=== PATIENT | female | born 1960 | race Caucasian/White ===

== ENCOUNTER → 2016-05-20 | Outpatient (CLI) | payer BC ==
[~2016-05-20] MED LIST: DRV100; IBUP-1428; TRAM-10
== END | disposition home or self-care (01) ==
LOC: C.LAB 17:15
PROVIDERS: ATTEND Family Medicine
DX: Z11.59 Encounter for screening for other viral diseases (principal)

== ENCOUNTER → 2016-06-01 | Outpatient (CLI) | payer BC ==
[2016-06-01 13:26] LABS: HEMATOCRIT 41.5 % (37-47); MEAN CELL VOLUME 89.4 fL (80-100); MEAN CORPUSCULAR HEMOGLOBIN 31.3 pg (25-34); MEAN CORPUSCULAR HGB CONC 34.9 g/dl (32-36); MEAN PLATELET VOLUME 12.3 fL (7.4-10.4); PLATELET COUNT 207 K/uL (130-400); RED BLOOD COUNT 4.64 M/uL (4.2-5.4); WHITE BLOOD COUNT 6.24 K/uL (4.8-10.8)
[2016-06-01 13:40] LABS: BLOOD UREA NITROGEN 16 mg/dl (7-18); BUN/CREATININE RATIO 18.2 (10-20); CALCIUM 9.3 mg/dl (8.5-10.1); CARBON DIOXIDE 25 mmol/L (21-32); CHLORIDE 104 mmol/L (98-107); CHOLESTEROL 199 mg/dl (0-200); CREATININE 0.85 mg/dl (0.60-1.20); GLUCOSE 80 mg/dl (70-99); SODIUM 137 mmol/L (136-145)
[2016-06-01 13:52] LABS: CHOLESTEROL/HDL RATIO 4.1; HDL CHOLESTEROL 48 mg/dl; LDL CHOLESTEROL CALCULATED 126 mg/dl; TRIGLYCERIDES 127 mg/dl (0-150); VERY LOW DENSITY LIPOPROT CALC 25 mg/dl
== END | disposition home or self-care (01) ==
LOC: C.LABPBG 10:00
PROVIDERS: ATTEND Family Medicine
DX: Z00.00 Encounter for general adult medical examination without abnormal findings (principal); E06.3 Autoimmune thyroiditis; E03.9 Hypothyroidism, unspecified; Z13.220 Encounter for screening for lipoid disorders

== ENCOUNTER → 2017-03-16 | Outpatient (CLI) | payer BC ==
--- NOTE | 2017-03-16 16:00 | MAMMOGRAPHY REPORT ---
BILATERAL DIGITAL SCREENING MAMMOGRAM TOMOSYNTHESIS WITH CAD: 03/16/2017 CLINICAL HISTORY: Routine screening examination. TECHNIQUE: Breast tomosynthesis in addition to standard 2D mammography was performed. Current study was also evaluated with a Computer Aided Detection (CAD) system. COMPARISON: Comparison is made to exams dated: 02/25/2016 mammogram and 02/20/2015 mammogram - [facility]. BREAST COMPOSITION: The tissue of both breasts is heterogeneously dense, which may obscure small mas ses. FINDINGS: There are stable postsurgical changes in the breasts. An asymmetry in the superior posteri or left breast on the MLO view appears stable dating back to at least 06/07/2011, therefore likely be nign. No new suspicious mass, architectural distortion or cluster of suspicious microcalcifications is seen. IMPRESSION: ACR BI-RADS CATEGORY 1: NEGATIVE There is no mammographic evidence of malignancy. A 1 year screening mammogram is recommended. The pa tient will receive written notification of the results. Approximately 10% of breast cancers are not detected with mammography. A negative mammographic report should not delay biopsy if a clinically suggestive mass is present. Rebeca Wilkinson M.D. ay/:03/16/2017 12:49:41 Utility Spray Operator: Zahraa FARFAN(Gareth)(Lisa), [facility] letter sent: Normal 1/2 BI-RADS Code: ACR BI-RADS Category 1: Negative
== END | disposition home or self-care (01) ==
LOC: C.MAMM 10:11
PROVIDERS: ATTEND Specialist
DX: Z12.31 Encounter for screening mammogram for malignant neoplasm of breast (principal)

== ENCOUNTER 2017-05-09 10:56 | Day surgery (SDC) | payer OTHER, BC ==
[2017-04-20 09:03] VITALS: BMI 32.0
--- NOTE | 2017-04-20 09:37 | PAT Medication Instructions ---
Service Date Apr 20, 2017. Current Home Medication List Acetaminophen (Tylenol), 650 MG PO PRN Fexofenadine-Pseudoephedrine (Lovely-D 24 Hour Allergy), 1 TAB PO PRN Ibuprofen (Advil), 800 MG PO PRN Levothyroxine Sodium (Levothyroxine Sodium), 1 TAB PO QAM [Liquid Tears], 1 DROP OPB PRN [Zantac], 1 TAB PO PRN Medication Instructions For Your Scheduled Surgery -Contact your surgeon for instructions for: Ibuprofen (Advil), 800 MG PO PRN - Hold the following medications the morning of surgery: Fexofenadine-Pseudoephedrine (Lovely-D 24 Hour Allergy), 1 TAB PO PRN - Take the following medications the morning of surgery with a sip of water: [Zantac], 1 TAB PO PRN (if needed) [Liquid Tears], 1 DROP OPB PRN (if needed) Levothyroxine Sodium (Levothyroxine Sodium), 1 TAB PO QAM Acetaminophen (Tylenol), 650 MG PO PRN (if needed can be taken up to four hours before surgery) - Take the following medications as scheduled the night before surgery: [Zantac], 1 TAB PO PRN (if needed) [Liquid Tears], 1 DROP OPB PRN (if needed) Fexofenadine-Pseudoephedrine (Lovely-D 24 Hour Allergy), 1 TAB PO PRN (if needed) Acetaminophen (Tylenol), 650 MG PO PRN (if needed) If you have any questions please call us at [phone] or [phone] or [phone]
--- NOTE | 2017-04-20 10:08 | DIAGNOSTIC IMAGING REPORT ---
CHEST 1 VIEW ROUTINE HISTORY: 57 years-old Female PAT preoperative exam. No acute chest complaints. COMPARISON: None available TECHNIQUE: Single PA view of the chest FINDINGS: Cardiomediastinal and hilar silhouettes are within normal limits. No pneumothorax, pleural effusion, focal airspace consolidation or overt pulmonary edema. Bones of the chest appear grossly intact. Dextroscoliosis of the midthoracic spine. IMPRESSION: No acute process. The above report was generated using voice recognition software. It may contain grammatical, syntax or spelling errors. Electronically signed by: Jamar Newman M.D. 04/20/2017 10:07 AM Dictated Date/Time: 04/20/2017 10:06 AM
[2017-04-20 11:05] LABS: BASO % 0.3 %; BASO ABS # 0.02 K/uL (0-0.2); EOS % 1.8 %; EOS ABS # 0.14 K/uL (0-0.5); HEMATOCRIT 40.8 % (37-47); HEMOGLOBIN 14.2 g/dL (12.0-16.0); IG# 0.02 K/uL (0.00-0.02); LYMPH % 19.6 %; LYMPH ABS # 1.52 K/uL (1.2-3.4); MEAN CELL VOLUME 92.1 fL (80-100); MEAN CORPUSCULAR HEMOGLOBIN 32.1 pg (25-34); MEAN CORPUSCULAR HGB CONC 34.8 g/dl (32-36); MEAN PLATELET VOLUME 11.9 fL (7.4-10.4); MONO % 7.9 %; MONO ABS # 0.61 K/uL (0.11-0.59); NEUT % 70.1 %; NEUT ABS # 5.43 K/uL (1.4-6.5); PLATELET COUNT 194 K/uL (130-400); RED CELL DISTRIBUTION WIDTH CV 12.7 % (11.5-14.5); RED CELL DISTRIBUTION WIDTH SD 42.8 fL (36.4-46.3); WHITE BLOOD COUNT 7.74 K/uL (4.8-10.8)
[2017-04-20 11:21] LABS: CALCIUM 9.6 mg/dl (8.5-10.1); CREATININE 0.86 mg/dl (0.60-1.20)
[~2017-05-09] VITALS: Ht 162.6 cm; Wt 84.7 kg
[~2017-05-09 10:56] MED LIST changes: +ACET-1311 PO; +CLINDAMYCIN 600 MG/54 ML D5W IV SCH; -DRV100; +FEXO1TAB58 PO; +IBUP-1050 PO; -IBUP-1428; +LACTATED RINGER'S 1000ML 1,000 ML IV SCH; +LEVO50TA6 PO; +LIQUID TEARS OPB; -TRAM-10; +ZANTAC PO
[2017-05-09 11:16] VITALS: BP 121/76; PULSE 80; TEMP 36.8; O2SAT 99; Ht 162.6 cm; Wt 84.7 kg
--- NOTE | 2017-05-09 11:46 | History & Physical Bridge Note ---
H&P Re-Evaluation Bridge Note: I have examined the patient, reviewed the History & Physical and in the interval since the performance of the History & Physical I have noted the following changes of clinical significance: No changes noted
--- NOTE | 2017-05-09 11:47 | History and Physical ---
History & Physical Date May 09, 2017. Chief Complaint Right SI joint pain History of Present Illness The patient is a 57 year old female with complaints of right SI joint pain Additional History Hepatic Disease: No Endocrine Disorder: No Kidney Disease: No Hypertension: No Heart Disease: No Bleeding Tendencies: No Infectious Diseases: No Allergies Coded Allergies: Penicillins (Verified Allergy, Severe, CAN'T BREATHE, HIVES,TONGUE SWELLING, 05/09/17) Home Medications Scheduled Acetaminophen (Tylenol), 650 MG PO PRN Fexofenadine-Pseudoephedrine (Lovely-D 24 Hour Allergy), 1 TAB PO PRN Ibuprofen (Advil), 800 MG PO PRN Levothyroxine Sodium (Levothyroxine Sodium), 1 TAB PO QAM [Liquid Tears], 1 DROP OPB PRN [Zantac], 1 TAB PO PRN Physical Examination Skin: warm/dry, no rash Eyes: normal inspection, EOMI, sclerae normal ENT: normal ENT inspection, pharynx normal Head: normocephalic, atraumatic Neck: supple, no adenopathy, trachea midline Respiratory/Chest: lungs clear, normal breath sounds, no respiratory distress Cardiovascular: regular rate, rhythm, no edema, no murmur Abdomen / GI: normal bowel sounds, non tender Back: normal inspection Extremities: normal inspection, normal range of motion Neurologic/Psych: no motor/sensory deficits, alert, normal reflexes, oriented x 3 Diagnosis Right sacroiliitis Plan of Treatment Right SI joint fusion
[2017-05-09] MEDS ORDERED: BUPIVACAINE/EPINEPHRINE 0.5% MPF 1:200,000 30 ML VIAL ONE (11:58)
[2017-05-09] MEDS ORDERED: BACITRACIN 50000 UNIT VIAL ONE (11:58)
[2017-05-09] MEDS ORDERED: MIDAZOLAM HCL 1 MG/ML 2ML VIAL ONE (11:59)
[2017-05-09] MEDS ORDERED: FENTANYL CITRATE INJ 50 MCG/1 ML 2 ML VIAL ONE ×2 (11:59→13:00)
[2017-05-09] MEDS ORDERED: MEPERIDINE HCL 25 MG/ML CARP IV PRN (12:00)
[2017-05-09] MEDS ORDERED: EpHEDrine SULFATE INJ 50 MG/ML AMP IV PRN (12:00)
[2017-05-09] MEDS ORDERED: ATROPINE SULFATE 0.1 MG/ML 5ML SYR IV PRN (12:00)
[2017-05-09] MEDS ORDERED: ONDANSETRON INJ 2 MG/ML 2 ML VIAL IV PRN (12:00)
[2017-05-09] MEDS ORDERED: LABETALOL HCL IV 5 MG/ML 20ML IV PRN (12:00)
[2017-05-09] MEDS ORDERED: HYDROmorphone INJ 2 MG/ML SYR/VIAL ONE (12:36)
[2017-05-09] MEDS ORDERED: KETOROLAC TROMETHAMINE 30 MG/ML VIAL ONE (12:41)
[2017-05-09] MEDS ORDERED: GLYCOPYRROLATE INJ 0.2 MG/ML VIAL ONE (12:41)
[2017-05-09] MEDS ORDERED: ONDANSETRON INJ 2 MG/ML 2 ML VIAL ONE (12:41)
[2017-05-09] MEDS ORDERED: PROPOFOL IV EMULSION 10 MG/ML 20 ML VIAL IV ONE (12:41)
[2017-05-09] MEDS ORDERED: NEOSTIGMINE METHYLSULFATE 1 MG/ML 10ML VIAL ONE (12:41)
[2017-05-09] MEDS ORDERED: ROCURONIUM BROMIDE 10 MG/ML 5 ML VIAL IV ONE (12:41)
[2017-05-09] MEDS ORDERED: DEXAMETHASONE SOD INJ 4 MG/ML VIAL ONE (12:41)
[2017-05-09] MEDS ORDERED: LIDOCAINE HCL 2% 2 ML VIAL (20MG/ML) ONE (12:41)
--- NOTE | 2017-05-09 12:59 | [facility] Operative Report ---
Operative Report Operative Date May 09, 2017. Pre-Operative Diagnosis Right sacroiliitis Post-Operative Diagnosis Right sacroiliitis Procedure(s) Performed Right Sacroiliac Joint Fusion Surgeon Dr. Luca James Industrial Maintenance Mechanic Surgeon(s) Joanne Moser PA-C Estimated Blood Loss 25 Findings None Specimens none per surgeon Anesthesia Type General Description of Procedure Patient was met with preoperatively case discussed all questions addressed. After informed consent obtained patient was taken to the operative suite underwent intubation and placed in the prone position on the Munir table with chest pad bolsters. All bony prominences were well-padded eyes inspected to ensure no external pressure placed upon them. This point the right upper buttock was prepped and draped in normal sterile fashion. With the assistance of fluoroscopy identified the posterior slope sacral alar of the sacrum. A 3 cm incision was made along the sacral slope. A K wire was then placed and we verified position with AP inlet outlet and lateral views. The K wire was placed across the proximal aspect of the SI joint on the right. I then dilated up to a 10 mm drill and we drilled across the joint. I measured a 40 mm screw. A 40 mm PEARSON-coated slotted screw filled with locally harvested morcellized autograft and osteogen bone graft was then placed across the SI joint. I appreciate excellent fit. I then used the outrigger guide to place a distal screw 12 mm from the initial placement. Again I verified position of the K wire in all planes. Again a 40 mm PEARSON-coated slotted screw filled with bone graft was placed. A third screw was then placed again 12 mm distal. This screw was 30 mm in length. Again PEARSON-coated slotted screw filled with locally harvested graft and osteal and bone graft. All 3 screws demonstrated excellent fit and positioning. The incision was then copious irrigated and closed with subcutaneous Vicryl and 4-0 Monocryl for final skin closure. Steri-Strips sterile dressing was placed. Patient awakened taken to PACU in stable condition. Please note Joanne Soler was present at the entire procedure involved in patient positioning complex portions of the surgery and final skin closure. I attest to the content of the Intraoperative Record and any orders documented therein. Any exceptions are noted below.
[2017-05-09] MEDS ORDERED: OXYC-57 PO (13:02)
--- NOTE | 2017-05-09 13:03 | Discharge Instructions ---
Discharge Instructions Date of Service May 09, 2017. Admission Reason for Admission: Si Joint Dysfunction Discharge Discharge Diagnosis / Problem: sacroiliitis Discharge Goals Goal(s): Decrease discomfort Activity Recommendations Activity Limitations: as noted below Exercise/Sports Limitations: gradually increase as tolerated May Resume Sexual Activity: after follow-up appointment Shower/Bathe: may shower/bathe in 3 days Weightbearing Status: Right toe touch . Current Hospital Diet Patient's current hospital diet: Discharge Diet Recommended Diet: Regular Diet Procedures Procedures Performed: Right Sacroiliac Joint Fusion Pending Studies Studies pending at discharge: no Medical Emergencies . Who to Call and When: Medical Emergencies: If at any time you feel your situation is an emergency, please call 911 immediately. . Non-Emergent Contact Non-Emergency issues call your: Primary Care Provider . "Provider Documentation" section prepared by Luca James. . VTE Core Measure Inpt VTE Proph given/why not?: Greg Russo, SCD's
--- NOTE | 2017-05-09 13:07 | DIAGNOSTIC IMAGING REPORT ---
SACRUM CLINICAL HISTORY: 57 years-old Female presenting with RT SACROILIAC JOINT FUSION. TECHNIQUE: 3 fluoroscopic spot image(s) obtained as part of an intraoperative procedure. COMPARISON: None. FINDINGS/IMPRESSION: 3 screw fixation across the right sacroiliac joint. Partially visualized posterior bilateral transpedicular screw and lars fixation in the lower lumbar spine with interbody spacer. Grossly normal anatomic alignment. Please see surgical report for further details. Fluoroscopy dosage (mGy): 59.96. Fluoroscopy time: 82 seconds. Number of fluoroscopic spot images: 3. Electronically signed by: Micheal Gilliam M.D. 05/09/2017 1:05 PM Dictated Date/Time: 05/09/2017 1:04 PM
[2017-05-09] MEDS ORDERED: ACETAMINOPHEN 325 MG TAB PO PRN (13:15)
[2017-05-09] MEDS ORDERED: OXYCODONE HCL IR 5 MG TAB (IMMEDIATE RELEASE) PO PRN (13:15)
[2017-05-09] MEDS ORDERED: HYDROmorphone INJ 2 MG/ML SYR/VIAL IV PRN (13:15)
[2017-05-09] MEDS ORDERED: KETOROLAC TROMETHAMINE 30 MG/ML VIAL IV. PRN (13:15)
[2017-05-09] MEDS: FENTANYL CITRATE INJ 50 MCG/1 ML 2 ML VIAL IV PRN ×2 (13:20→13:27)
[2017-05-09] MEDS: HYDROmorphone INJ 1 MG/ML SYR IV PRN ×2 (13:33→13:39)
--- NOTE | 2017-05-09 13:48 | Anesthesiology Progress Note ---
Anesthesia Post Op Note Date & Time May 09, 2017 at 13:48 Vital Signs Pain Intensity: 5 Vital Signs Past 12 Hours Date Time Temp Pulse Resp B/P (MAP) Pulse Ox O2 Delivery O2 Flow Rate FiO2 05/09/17 13:40 79 15 114/84 93 Room Air 05/09/17 13:30 78 12 124/79 100 Oxymask 10 05/09/17 13:20 85 14 122/82 100 Oxymask 10 05/09/17 13:12 36.4 93 16 129/78 97 Oxymask 10 05/09/17 11:16 36.8 80 20 121/76 (91) 99 Room Air Notes Mental Status: alert / awake / arousable, participated in evaluation Pt Amnestic to Procedure: Yes Nausea / Vomiting: adequately controlled Pain: adequately controlled Airway Patency, RR, SpO2: stable & adequate BP & HR: stable & adequate Hydration State: stable & adequate Anesthetic Complications: no major complications apparent
[2017-05-09 15:00] VITALS: BP 122/75; PULSE 72; TEMP 36.3; O2SAT 99
== END 2017-05-09 16:00 | disposition home or self-care (01) ==
LOC: C.ACU 10:56
PROVIDERS: ATTEND Orthopaedic Surgery Orthopaedic Surgery of the Spine
DX: M46.1 Sacroiliitis, not elsewhere classified (principal); E66.9 Obesity, unspecified; Z68.32 Body mass index [BMI] 32.0-32.9, adult; Z88.0 Allergy status to penicillin; Z98.41 Cataract extraction status, right eye; Z98.42 Cataract extraction status, left eye

== ENCOUNTER → 2017-05-30 | Outpatient (CLI) | payer BC ==
[~2017-05-30] MED LIST changes: -CLINDAMYCIN 600 MG/54 ML D5W IV SCH; -IBUP-1050 PO; -LACTATED RINGER'S 1000ML 1,000 ML IV SCH; +OXYC-57 PO
== END | disposition home or self-care (01) ==
LOC: C.LABPBG 08:17
PROVIDERS: ATTEND Family Medicine
DX: E03.9 Hypothyroidism, unspecified (principal)

== ENCOUNTER 2024-06-27 05:26 | Observation (INO) ==
--- NOTE | 2024-05-28 15:00 | PAT Medication Instructions ---
Medication Instructions Date of Service May 28, 2024 Home Medications Medication Instructions Recorded escitalopram oxalate 20 mg tablet 20 mg PO DAILY #90 tabs 08/25/23 pantoprazole 40 mg tablet,delayed 40 mg PO DAILY #90 tabs 08/25/23 release levothyroxine 125 mcg tablet 125 mcg PO DAILY #90 tabs 03/23/24 phentermine 37.5 mg capsule 37.5 mg PO QAM #30 caps 03/23/24 Medication List: fexofenadine 180 mg tablet (Lovely Allergy) 180 mg PO DAILY PRN Allergy Symptoms escitalopram oxalate 20 mg tablet 20 mg PO DAILY pantoprazole 40 mg tablet,delayed release 40 mg PO DAILY levothyroxine 125 mcg tablet 125 mcg PO DAILY phentermine 37.5 mg capsule 37.5 mg PO QAM MEDICATION INSTRUCTIONS: DO NOT take the morning of surgery fexofenadine 180 mg tablet (Lovely Allergy) 180 mg PO DAILY PRN Allergy Symptoms Take morning of surgery With a small sip of water, OTHERWISE NOTHING TO EAT OR DRINK AFTER MIDNIGHT: escitalopram oxalate 20 mg tablet 20 mg PO DAILY pantoprazole 40 mg tablet,delayed release 40 mg PO DAILY levothyroxine 125 mcg tablet 125 mcg PO DAILY Other Notes STOP taking 5 days before surgery: phentermine 37.5 mg capsule 37.5 mg PO QAM If you have any questions please call us at [phone] or [phone] or [phone] or [phone]
--- NOTE | 2024-06-08 09:16 | Anesthesiology Consultation ---
Date of Service June 08, 2024 Assessment & Plan (1) Encounter for pre-operative examination: - Infectious disease screening: Per assessment on 06/08/24- URI onset 05/22/24. Seen by [facility] PCP 06/04/24 for ongoing cough/congestion. Suspected influenza A given sister with similar symptoms tested positive for influenza (negative Covid home testing). Rx'd prednisone and Azithromycin (still taking; symptoms significantly improved). DOS 06/27/24. Patient advised to contact surgeon/PAT if not at baseline after completion of prednisone/abx. - Outpatient joint assessment: Pt currently scheduled for inpatient pathway. If surgeon requests review for outpatient joint pathway, patient is an acceptable candidate for outpatient joint program from anesthesia standpoint pending surgeon's office assessment that patient is motivated, has good support and completes [facility] Day Joint Program preop requirements. Chart Review Chart Review: Acceptable Risk for Surgery (pending evaluation DOS) and Patient seen in Pre Admission Testing Teaching & Discussion Pre-Anesthesia Teaching/Discussion Notes: Instructed NPO after midnight before surgery,except medications with 15 cc of water. Medication instructions provided according to the PAT guidelines. History Surgery Operation Date: 06/27/24 12:35 Proposed Procedures p Left Unicompartment Knee versus - Anthony Sullivan MD s Left Total Knee Arthroplasty - Anthony Sullivan MD Height/Weight Height: 5 ft 4 in Weight: 84.4 kg Allergies Allergy/AdvReac Type Severity Reaction Status Date / Time Penicillins Allergy Severe Dyspnea, Verified 06/04/24 11:14 hives, tongue swelling Medications Home Medications Medication Instructions Recorded Confirmed Last Taken fexofenadine 180 mg tablet 180 mg PO DAILY PRN Allergy 01/16/18 06/04/24 01/17/18 (Lovely Allergy) Symptoms escitalopram oxalate 20 mg tablet 20 mg PO DAILY #90 tabs 08/25/23 06/04/24 Unknown pantoprazole 40 mg tablet,delayed 40 mg PO DAILY #90 tabs 08/25/23 06/04/24 Unknown release phentermine 37.5 mg capsule 37.5 mg PO QAM #30 caps 03/23/24 06/04/24 Unknown azithromycin 250 mg tablet See Rx Instructions PO .COMPLEX #6 06/04/24 06/04/24 Unknown tabs levothyroxine 125 mcg tablet 125 mcg PO DAILY #90 tabs 06/04/24 Unknown prednisone 20 mg tablet 40 mg (2 x 20 mg) PO DAILY 5 days 06/04/24 06/04/24 Unknown #10 tabs Past Medical History Medical History Anxiety COVID-19 2021- symptosm resolved DJD (degenerative joint disease) GERD (gastroesophageal reflux disease) Hiatal hernia History of anemia Hx of Lev thyroiditis Hypothyroidism Lumbar disc disease Obesity Taking phentermine for weight loss PVCs (premature ventricular contractions) Intermittent, stress-induced No current issues Seasonal allergies Thrombocytopenia Hx chronic thrombocyopenia Monitoring with Omgili/Cecilia Platelet count WNL (169) on preop labs 06/08/24 Exercise / Class Metabolic Activity III < 4 Walking/Shop/Light housework Past Family History Family History Father Myocardial infarction, Onset Age: 58 Coronary heart disease Mother Breast cancer Grandmother (Paternal) Breast cancer Grandmother (Maternal) Ovarian cancer Sister Esophageal cancer Denies family history of Prostate cancer Past Surgical History Surgical History History of abdominoplasty History of appendectomy History of back surgery Right sacroiliac joint fusion (2017) History of bilateral breast reduction surgery History of bilateral cataract extraction History of section History of endoscopic sinus surgery History of partial hysterectomy History of tonsillectomy and adenoidectomy History of tooth extraction wisdom teeth Hx of arthroscopy of shoulder right Hx of colonoscopy Status post lumbar spine surgery for decompression of spinal cord L4-5 decompression and fusion (2005) Past Anesthesia History No Hx of Anesthesia Complications and No Family Hx of Anesthesia Complications Social History Smoking Status: Never smoker Do You Dip or Chew Tobacco: No Hx Alcohol Use: Yes Alcohol type: wine and hard liquor alcohol intake frequency: holidays/special occasions only Hx Substance Use: No substance use type: does not use Review of Systems Patient denies chest pain, shortness of breath, fever, chills, cough, wheezing. Physical Exam Vital Signs BP 123/86 P 70 TEMP 98.0 SP02 97%A RESP 16 Physical Full cervical extension range of motion. Full TMJ range of motion. TMD 3 finger breaths Mallampati Score III Dentition: intact, lower permanent retainer Lungs: clear throughout to auscultation Cardiac: regular rate and rhythm, no murmurs noted Spine: normal Carotid arteries: negative bruit Extremities: no LE edema Lab Results Anesthesia Preop Results Results Anesthesia Widget: WBC 7.13 K/ul (4.8-10.8) 06/08/24 Hgb 13.1 g/dl (12.0-16.0) 06/08/24 Hct 39.1 % (37.0-47.0) 06/08/24 Plt 169 K/uL (130-400) 06/08/24 Na 141 mmol/L (136-145) 06/08/24 K 3.9 mmol/L (3.5-5.1) 06/08/24 Cl 106 mmol/L (98-107) 06/08/24 CO2 28 mmol/L (21-32) 06/08/24 BUN 13 mg/dl (6-23) 06/08/24 Creat 0.90 mg/dl (0.6-1.2) 06/08/24 Glucose Level 100 mg/dl (70-99(Fasting)) H 06/08/24 PT 10.6 Seconds (9.0-12.0) 06/08/24 PTT 22 Seconds (21-31) 06/08/24 INR 1.0 (0.9-1.1) 06/08/24 TSH 1.159 uIu/ml (0.300-4.500) 06/08/24 Blood Type B Negative 06/08/24 Antibody Screen NEGATIVE 06/08/24 Testing Electrocardiogram Date: 06/08/24 NSR at 64bpm. "Normal ECG" Chest X-Ray Date: 06/08/24 FINDINGS: Heart size and pulmonary vasculature are normal. No effusion or consolidation. There is mild scoliosis. IMPRESSION: No acute findings.
--- NOTE | 2024-06-23 13:32 | History & Physical Report ---
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 She has failed conservative measures. She is looking to have her knee fixed. Plan: We discussed treatment option with the patient. It is beyond the point where knee arthroscopy would help her. We talked about partial versus full knee replacement she would like to proceed along the course of a partial knee replacement. Will proceed along that course. If we get in there and it is too bad we will do a full knee replacement. The [place] of the procedure were explained. Informed consent was obtained. Will plan on using aspirin for DVT prophylaxis. She is planned to be discharged to home. Will keep in the hospital overnight. (2) Obesity (BMI 30.0-34.9): (3) Hyperlipidemia: (4) Thrombocytopenia: (5) GERD (gastroesophageal reflux disease): (6) Hiatal hernia: (7) Hypothyroidism: History of Present Illness Chief Complaint: . Left medial knee pain. Primary Care Provider: Aliza Gibbs DO . The patient is a 64-year-old female who presents for treatment of her left knee. She has about a year history of left knee pain discomfort for which she dates back to an injury she stated when she was using a stepping machine. She been through conservative treatment provided over at [facility] which have become less successful over time. She has medial sided knee pain. She has been using a cane to get around for the past couple months due to the pain. Pains all medial. Some mild swelling. No groin pain. She would like to have her knee fixed. Allergies Allergy/AdvReac Type Severity Reaction Status Date / Time Penicillins Allergy Severe Dyspnea, Verified 06/04/24 11:14 hives, tongue swelling Home Medications Medication Instructions Recorded Confirmed Type fexofenadine 180 mg tablet 180 mg PO DAILY PRN Allergy 01/16/18 06/04/24 History (Lovely Allergy) Symptoms escitalopram oxalate 20 mg tablet 20 mg PO DAILY #90 tabs 08/25/23 06/04/24 Rx pantoprazole 40 mg tablet,delayed 40 mg PO DAILY #90 tabs 08/25/23 06/04/24 Rx release phentermine 37.5 mg capsule 37.5 mg PO QAM #30 caps 03/23/24 06/04/24 Rx azithromycin 250 mg tablet See Rx Instructions PO .COMPLEX #6 06/04/24 06/04/24 Rx tabs levothyroxine 125 mcg tablet 125 mcg PO DAILY #90 tabs 06/04/24 Rx Past Med/Surg History Problem List Encounter for pre-operative examination Left knee DJD Obesity (BMI 30.0-34.9) Hyperlipidemia Thrombocytopenia Low iron Anxiety Allergic rhinitis Lumbar disc disease Premature ventricular contractions GERD (gastroesophageal reflux disease) Hiatal hernia Hypothyroidism Medical History GERD (gastroesophageal reflux disease) Lumbar disc disease Hypothyroidism Hx of Lev thyroiditis Seasonal allergies Anxiety History of anemia Obesity Taking phentermine for weight loss DJD (degenerative joint disease) Hiatal hernia PVCs (premature ventricular contractions) Intermittent, stress-induced No current issues Thrombocytopenia Hx chronic thrombocyopenia Monitoring with Zofia quiñonez/Cecilia Platelet count WNL (169) on preop labs 06/08/24 COVID-19 2021- symptosm resolved Surgical History Hx of colonoscopy Hx of arthroscopy of shoulder right History of back surgery Right sacroiliac joint fusion (2017) Status post lumbar spine surgery for decompression of spinal cord L4-5 decompression and fusion (2005) History of abdominoplasty History of bilateral breast reduction surgery History of section History of partial hysterectomy History of appendectomy History of tooth extraction wisdom teeth History of tonsillectomy and adenoidectomy History of endoscopic sinus surgery History of bilateral cataract extraction Family History Father Myocardial infarction, Onset Age: 58 Coronary heart disease Mother Breast cancer Grandmother (Paternal) Breast cancer Grandmother (Maternal) Ovarian cancer Sister Esophageal cancer Denies family history of Prostate cancer Social History Smoking Status: Never smoker Second Hand Exposure: Yes (parents/ smoke); Do You Dip or Chew Tobacco: No; Tobacco Cessation Education Requested by Patient: No Hx Alcohol Use: Yes Alcohol type: wine and hard liquor Alcohol Intake Frequency: Monthly or Less Hx Substance Use: No Preferred Language: Occitan Communication Ability: Effective Visual Impairment: No Limitations Hearing Ability: Normal Cottage Attendant Required: No Beliefs That Will Affect Care: None marital status: Current Living Situation: Spouse current occupational status: employed current occupation: [employer] How many Children do You have: 2 Other Information That Helps Us Care for You: No Feels Safe at Home: Yes Safety Concerns: Feels Safe At This Time Childhood Exposure to Second-Hand Smoke: Yes Diet: regular Diet Comment: regular caffeine: Yes during the past year weight has: remained stable Dental Care, Regularly: Yes Physical Activity Frequency: Other Physical Activity Frequency Comment: housework Seatbelt Use: always Sunscreen Use: Yes Assistive Devices: Crutches and Glasses Review of Systems All systems reviewed & are unremarkable except as noted in HPI & below. Physical Exam . Physical examination is a pleasant middle-age female who looks be in good health. Examination left knee reveals patient walks with use of a single crutch. She limps on this left side. She can walk without it but limps quite a bit. The alignment is fairly neutral. She is tender with medial joint line. Small knee effusion. Range of motion 0-1 20. There is no instability. Constitutional WD/WN, vitals as above Respiratory normal respiratory effort, lungs clear to auscultation Cardiovascular RRR, no murmur, no edema Gastrointestinal (Abdomen) normal bowel sounds, soft, nontender, no hepatosplenomegaly Results & Data Results & Data Laboratory Results . Diagnostic Findings . X-rays of the knee were reviewed. It shows advanced progressive medial compartment arthritis in her left knee. She got almost [id number] disease. This has progressed over the past 6 months. The rest knee looks pretty good. MRI of the knee was also reviewed from [facility]. It shows degenerative changes in the medial compartment of her knee. That she got extrusion of her medial meniscus. She is got degenerative changes of the medial femoral condyle and medial tibial plateau. PG Care Time/CCT Total # of Minutes Spent Total Time Spent with Patient: Total time spent is greater than 50% in coordination of care (as documented) at patient's floor/unit and/or counseling patient: Coding Level of Care Code None Diagnoses Left knee DJD M17.12 Obesity (BMI 30.0-34.9) E66.811 Hyperlipidemia E78.5 Thrombocytopenia D69.6 GERD (gastroesophageal reflux disease) K21.9 Hiatal hernia K44.9 Hypothyroidism E03.9
[~2024-06-27 05:26] MED LIST changes: -ACET-1311 PO; +ALLERGY Noted to ORDERED Medication SCH; -FEXO1TAB58 PO; -LEVO50TA6 PO; -LIQUID TEARS OPB; -OXYC-57 PO; -ZANTAC PO
[2024-06-27] MEDS: FAMOTIDINE 20 MG TAB PO SCH (05:43)
[2024-06-27] MEDS: ACETAMINOPHEN 500 MG TAB PO SCH ×2 (05:43→11:48)
[2024-06-27] MEDS: LR 60ML/HR IV SCH (05:43)
[2024-06-27] MEDS: dexAMETHasone**PF** 10 MG/ML VIAL IV SCH (05:43)
[2024-06-27] MEDS: METOCLOPRAMIDE HCL 10 MG TABLET PO SCH (05:43)
[2024-06-27] MEDS: CeleBREX 200 MG CAP PO SCH (05:51)
[2024-06-27] MEDS: LR 500ML BOLUS, THEN 15ML/HR IV SCH (06:00)
[2024-06-27] MEDS ORDERED: ROPIVACAINE 0.5% 5 MG/ML 30 ML VIAL ONE (06:31)
[2024-06-27] MEDS ORDERED: BUPIVACAINE 0.5 % 5 MG/1 ML PF 10ML VIAL ONE (06:31)
[2024-06-27] MEDS ORDERED: ONDANSETRON INJ 2 MG/ML 2 ML VIAL IV PRN ×2 (06:35→10:36)
[2024-06-27] MEDS ORDERED: ATROPINE SULFATE 0.1 MG/ML 10ML SYR IV PRN (06:35)
[2024-06-27] MEDS ORDERED: fentaNYL citrate PF 100 MCG/2 ML VIAL IV PRN (06:35)
[2024-06-27] MEDS ORDERED: ePHEDrine sulfate 50 MG/ML AMP IV PRN (06:35)
[2024-06-27] MEDS ORDERED: fentaNYL citrate PF 100 MCG/2 ML VIAL ONE (06:38)
[2024-06-27] MEDS ORDERED: MIDAZOLAM HCL 1 MG/ML 2ML VIAL ONE (06:38)
--- NOTE | 2024-06-27 06:42 | History & Physical Bridge Note ---
Date of Service June 27, 2024 History & Physical Bridge Note I have examined the patient, reviewed the History & Physical and in the interval since the performance of the History & Physical I have noted the following changes of clinical significance: no changes noted
[2024-06-27] MEDS ORDERED: Nursing to Pharmacy Communication SCH (06:45)
[2024-06-27] MEDS: ceFAZolin 2000MG 2,000 MG/15 ML SYR IV SCH ×2 (07:04→14:03)
[2024-06-27] MEDS ORDERED: PROPOFOL IV EMULSION 10 MG/ML 20 ML VIAL IV ONE (07:14)
[2024-06-27] MEDS: ROPIV 0.5% 246mg, Ketorolac 30mg, EPINEPHrine 0.5mg in NSS INFIL SCH (07:44)
[2024-06-27] MEDS: ORTHO JOINT ANESTHETIC ONE (07:45)
[2024-06-27] MEDS: TRANEXAMIC ACID 1,000 MG **IV Intra-op IV SCH (08:02)
--- NOTE | 2024-06-27 08:59 | Operative Report ---
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 She had a full-thickness cartilage loss of the medial femoral condyle medial tibial plateau. The rest of her knee was pretty well-preserved. ACL was intact. Specimens Left knee sent for pathology. Anesthesia Type Spinal MAC Complications none Disposition Accompanied Patient To Recovery: No Indications The patient is a 64-year-old female whose had about a year history of progressive increasing left knee pain discomfort that is gradually gotten worse over time. She been through extensive conservative treatment which was not very effective. Her symptoms continue to progress and x-rays show a radiographic progression of her medial compartment arthritis. The rest of her knees look pretty good. She elected to see with left partial knee replacement. Description of Procedure Operative implants consists of: New 1 Biomet Hatillo size small femoral component. 2. Biomet Hatillo left medial size AA tibial tray. 3. 4 mm mobile-bearing polyethylene insert. The patient was taken the op room, identified, placed on the operating table in the supine position. All contact areas were appropriately padded. IV antibiotics fibra anesthesia team. A spinal anesthetic and adductor canal block had been provided in the holding area. A Hermosillo catheter was placed in sterile fashion. A left thigh tourniquet was then placed. Left lower extremities then prepped draped in usual sterile fashion. The left leg was elevated and exsanguinated with use of an Esmarch and a turn was placed at 300 mmHg. An anterior approach to the left knee was then performed to longitudinal incision beginning at the superior pole of the patella and extending just medial to the tibial tubercle. Sharp dissection was got through subcutaneous tissue down the extensor mechanism. A medial parapatellar arthrotomy incision was made. Some slight subperiosteal dissection was carried out medially taking great care to protect the MCL. The fat pad was resected. I then examined the knee and the lateral compartment was well-preserved. Minimal arthritic change in the patellofemoral joint. We elected proceed with partial knee replacement. The osteophytes removed from the intercondylar notch area. The femur was sized to a size small. The small spoon was placed and attached to the external tumor alignment jig. The jig was pinned in place. The proximal tibial cut was made. The tibia sized to a size double leg. Attention drawn the femur. The distal femur examined the sharp drop with intramedullary lars was placed. A small femoral template was then placed and attached to the IM lars. The holes were drilled for the femoral component. The posterior cutting guide was placed and a posterior cut was made. The knee was flexed. The medial meniscus was excised. We then used the 0 spigot the Flores distal femur. Then trialed the knee and the 4 feeler gauge fit and flexion and the 1 in extension. The 3 spigot was used to milled the distal femur. We then trialed it again and the 4 insert fit appropriately in flexion and extension. We elect to place these implants. All trial implants were removed. The distal femur was prepared with the posterior osteophyte cutting guide as well as the anterior milling device. Some cement holes were drilled in the distal femur for cement interdigitation. The tibial tray was pinned in place. The toothbrush blade was used to create the defect for the keel of the tibial tray. The tibial tray was then placed. We trialed the knee and the 4 insert fit appropriately. We went to placing these implants. All trial implants were removed. I irrigated extensively. We did inject locally with 60 cc of Ortho mix. A single batch Palacos G cement was mixed. A left AA tibial tray was cemented in place followed by a small femoral component. The 4 feeler gauge was placed until the cement hardened. Final cement check was then performed. We then trialed the knee 1 more time and the 4 insert fit appropriately. The permanent for implant was selected and placed. Attention drawn toward closing. The wounds irrigated coconuts pulsatile wash solution. The extensor Metros then closed with #1 Vicryl suture in a [id number] fashion. Extensor Meclomen checked found to be intact with subcutaneous tissue then closed with 2 Dexon suture in a buried interrupted fashion skin was closed with skin scar. Leg was then cleaned and dried a sterile dressing with Xeroform, 4 fours, sterile cast padding and Chase bandage were applied. The patient then transferred to the recovery room in stable condition. The patient tolerated procedure well and there were no complications. Adonis Rincon, my physician operational assistant, was present for the entire procedure. His assistance was essential and required for appropriate patient positioning, prepping and draping, surgical exposure, performing the technical details of the operation, placement the implants, closure of the wound, and placement of the sterile bandage. I attest to the content of the Intraoperative Record and any orders documented therein. Any exceptions are noted below.
--- NOTE | 2024-06-27 09:10 | XRay Report ---
XR knee LT 1 or 2V routine CLINICAL HISTORY: Surgical Post Op COMPARISON: None FINDINGS: Medial left knee prosthesis shows no hardware complication. There is expected soft tissue gas. Skin scar are present. IMPRESSION: Unremarkable postoperative exam. ACT 112: Negative or not required by law. Electronically signed by: Tobi Cardenas M.D. 06/27/2024 9:09 AM
[2024-06-27] MEDS ORDERED: ONDANSETRON 4 MG OD TAB PO PRN (10:36)
[2024-06-27] MEDS ORDERED: HYDROmorphone INJ 0.5 MG/0.5 ML SYR IV PRN (10:36)
[2024-06-27] MEDS ORDERED: MAGNESIUM HYDROXIDE SUSP 30 ML UDC PO PRN (10:36)
[2024-06-27] MEDS ORDERED: ALUMINUM/MAGNESIUM SUSP 30 ML UDC PO PRN (10:36)
[2024-06-27] MEDS ORDERED: oxyCODONE HCL IR 5 MG TAB (IMMEDIATE RELEASE) PO PRN (10:36)
[2024-06-27] MEDS ORDERED: FEXOFENADINE HCL 180 MG TAB PO PRN (10:36)
[2024-06-27] MEDS ORDERED: METOCLOPRAMIDE HCL INJ 5 MG/ML 2 ML VIAL IV PRN (10:36)
[2024-06-27] MEDS ORDERED: NALOXONE HCL 0.4 MG/1 ML VIAL/CARP IV PRN (10:36)
[2024-06-27] MEDS ORDERED: bisacodyL 10 MG SUPP PR PRN (10:36)
[2024-06-27] MEDS: LEVOTHYROXINE SODIUM 125 MCG TABLET PO SCH (11:43)
[2024-06-27] MEDS: PANTOprazole 40 MG TAB PO SCH (11:45)
[2024-06-27] MEDS: MULTIVITAMIN TAB PO SCH (11:45)
[2024-06-27] MEDS: ESCITALOPRAM OXALATE 20 MG TAB PO SCH (11:45)
[2024-06-27] MEDS: ASPIRIN 81 MG ECTAB PO SCH (11:45)
[2024-06-27] MEDS: KETOROLAC 30 MG/ML VIAL IV SCH (11:47)
[2024-06-27] MEDS: DOCUSATE SODIUM 100 MG CAP PO SCH (11:47)
[2024-06-27] MEDS: SENNA 8.6 MG TAB PO SCH ×2 (11:51→20:02)
[2024-06-27] MEDS: TRANEXAMIC ACID / 0.7% NACL 1,000 MG/100 ML BAG IV SCH (14:03)
[2024-06-27] MEDS: ASCORBIC ACID 500 MG TAB PO SCH (16:56)
[2024-06-28 07:16] VITALS: BP 102/60; PULSE 82; RESP 16; TEMP 98.6; O2SAT 95
--- NOTE | 2024-06-28 08:23 | Orthopedic Progress Note ---
Date of Service June 28, 2024 Assessment & Plan (1) S/P left unicompartmental knee replacement: POD 1 from a left unicompartmental knee arthroplasty by Dr. Sullivan -SCDs, teds and aspirin 81 mg twice daily for DVT prophylaxis -Home medications already sent in by Dr. Sullivan picked up by patient and her family prior to the surgery -Please work with PT/OT today prior to discharge. -She does have some saturation of the anterior lateral aspect of her dressing. Please change dressing and Chase wrap prior to discharge. -Discharge order has been placed pending PT/OT and dressing change. -She already has home PT set up. Follow-up with Dr. Sullivan in 2 to 3 weeks for first postop check and staple removal. Subjective Operation Date: 06/27/24 07:00 Actual Procedures p Left Unicompartment Knee Arthroplasty(Left) - Anthony Sullivan MD Postop day 1 from a left knee unicompartmental arthroplasty. She is doing well. States that she has postop care figured out at this point. States pain is under control. She has not seen PT/OT yet during this admission. No other question or concerns today. Review of Systems All systems reviewed & are unremarkable except as noted in HPI & below. Physical Exam General: Alert and oriented. No acute distress. Left knee: Inspection does reveal some saturation of the Chase wrap on the anterior lateral side. I will have nursing staff change this prior to her discharge today. Did explain to her that some saturation is normal after these type of procedures. She is very good range of motion of her left knee and very good range of motion of the left ankle and foot. Neurovascularly intact in the left lower extremity. Results & Data Results & Data Laboratory Results . Diagnostic Findings . PG Care Time/CCT Total # of Minutes Spent Total Time Spent with Patient: Total time spent is greater than 50% in coordination of care (as documented) at patient's floor/unit and/or counseling patient: Coding Level of Care Code 40126 Post Operative Follow-Up Diagnoses S/P left unicompartmental knee replacement Z96.652
--- NOTE | 2024-06-28 08:27 | Discharge Summary ---
Date of Service June 28, 2024 Admission HPI (Per Admitting) . The patient is a 64-year-old female who presents for treatment of her left knee. She has about a year history of left knee pain discomfort for which she dates back to an injury she stated when she was using a stepping machine. She been through conservative treatment provided over at [facility] which have become less successful over time. She has medial sided knee pain. She has been using a cane to get around for the past couple months due to the pain. Pains all medial. Some mild swelling. No groin pain. She would like to have her knee fixed. Admission Exam (Per Admitting) . Physical examination is a pleasant middle-age female who looks be in good health. Examination left knee reveals patient walks with use of a single crutch. She limps on this left side. She can walk without it but limps quite a bit. The alignment is fairly neutral. She is tender with medial joint line. Small knee effusion. Range of motion 0-1 20. There is no instability. Principal Diagnosis Same as "Discharge Diagnosis" noted below under Discharge Instructions. Discharge Exam General: Alert and oriented. No acute distress. Left knee: Inspection does reveal some saturation of the Chase wrap on the anterior lateral side. I will have nursing staff change this prior to her discharge today. Did explain to her that some saturation is normal after these type of procedures. She is very good range of motion of her left knee and very good range of motion of the left ankle and foot. Neurovascularly intact in the left lower extremity. Discharge Data Procedures Performed Operation Date: 06/27/24 07:00 Actual Procedures p Left Unicompartment Knee Arthroplasty(Left) - Anthony Sullivan MD Ordered Studies 06/27/24 05:00 US - OR guided needle placemen Routine PG Care Time/CCT Total # of Minutes Spent Total Time Spent with Patient: Total time spent is greater than 50% in coordination of care (as documented) at patient's floor/unit and/or counseling patient: Discharge Plan Discharge Items Patient Disposition: Home - Home Health Services Reason For Visit: Arthritis Left Knee Discharge Diagnosis: Left Partial Knee Replacement Activity: Per Instructions section Weightbearing: Full weightbearing Non-emergency contact: Surgeon Call non-emergency contact if: you have any medication questions Follow-up/Referrals: Aliza Gibbs DO [Primary Care Provider] - Diet: Regular Addtl Attending Provider Instructions: ACTIVITY RECOMMENDATIONS: Diet: * You may resume previous diet. Physical Therapy: * You will go to physical therapy three times each week for four to six weeks after your surgery in order to regain your knee range of motion and to retrain your knee to work properly. * It is just as important to make sure you are getting your knee perfectly straight as it is to regain your knee bend. * Taking a pain pill an hour before therapy can help you have a more productive and comfortable therapy session. Home Exercise: * You were shown a series of exercises (heel props, heel slides, etc.) in the hospital. Do these exercises three to four times each day including the exercises you were shown in physical therapy. Walking: * Get up and walk several times each day. For the first four weeks, try not to stand or walk for more than one hour at a time. If you do stand or walk for more than one hour, you will not hurt anything, but your knee and leg will likely swell. * As you feel comfortable, you may change from the walker or crutches to a cane and then to independent walking. MEDICATIONS: New Medicine: * You will likely be taking one or more of these medications: 1. Oxycodone - A quick and shorter-acting pain medication. Take one to two tablets every six hours to lessen your pain. 2. Aspirin - Thins your blood to lessen the chance of forming a blood clot. * The most common side effects of pain medicine and iron are nausea and constipation. If nausea or constipation is too much of a problem or if you have any que stions about your new medicines or doses, call [facility] at . We will try to help you manage these issues. "VERY IMPORTANT TO READ AND REVIEW" Pain: * The immediate post-operative period after knee replacement surgery is often quite painful. * You are given a prescription for pain medicine. You should take it, as directed, when you need it, especially before physical therapy and before going to bed. Pain that interferes with sleep is very common and can last several months. * You will likely need pain medicine for the first four to six weeks. It will not stop all of the pain. The pain will lessen and as you feel better, you may change to milder pain medicine such as Tylenol. * The most common side effects of pain medicine are nausea and constipation, so don't take more than you need. SPECIAL CARE INSTRUCTIONS: TEDs/Elastic Stockings: * The white elastic stockings help limit swelling and prevent blood clots from forming in your legs. The more you wear them, the more they work. * Wear them for six weeks after knee replacement surgery and four weeks after partial knee replacement. Incision Site Care: * Remove dressing postoperative day 2 and then shower. Keep direct shower pressure off the incision site. * After showering, cover scar with dry gauze and change daily or more frequently if the dressing is getting saturated with drainage. * Use the MARIA DEL CARMEN stockings to hold dressing in place. DO NOT apply tape on the skin. * May completely stop using bandage if wound is dry and no drainage * Scar are removed between 2 and 3 weeks post-op. If your follow-up appointment is made before 2 weeks, please have your appointment re- scheduled. It is too early to remove the scar. Prevention of Infection: * Take antibiotics one hour before any dental cleaning, dental work, urological procedure, gastrointestinal procedure or any invasive surgery in order to prevent your new joint from getting infected. * You may get the antibiotics from the doctor performing the procedure or you may call our office at [phone] before and we will call in a prescription to the pharmacy of your choice. Things to Watch For: * Drainage from the incision site that occurs more than one week after your surgery. * Severely increased knee/leg pain or swelling. * Increased redness at the incision site. * Fever above 102 degrees Fahrenheit. * Unusual chest pain or shortness of breath. * Unusual pain or burning with urination. Call [facility] at [phone] with any of the above problems or if you have any questions about your medicines or recovery. FOLLOW UP VISIT: Make an appointment to see your doctor for approximately two weeks after surgery for a progress check and staple removal by calling the office at [phone]. Pending Studies at Discharge: No Stand-Alone Forms: My [facility], Smoking Cessation Medications and DC Order Prescriptions: Continued levothyroxine 125 mcg tablet 125 mcg PO DAILY Qty: 90 0RF oxycodone 5 mg tablet 5 - 10 mg PO Q8H PRN (Reason: pain) Qty: 40 0RF Rx Instructions: Take as needed for pain. Do not take more than 6 tablets per day ondansetron 4 mg tablet,disintegrating 4 mg PO Q8 PRN (Reason: nausea) Qty: 20 1RF Rx Instructions: Take as needed for nausea sennosides [Senokot] 8.6 mg tablet 8.6 mg PO BID 14 Days Qty: 28 0RF Rx Instructions: Take two times a day to prevent/treat constipation acetaminophen [Tylenol Extra Strength] 500 mg tablet 1,000 mg PO TID 30 Days Qty: 180 0RF Rx Instructions: Take 3 times per day to lessen pain. aspirin [Mariia Low Dose Aspirin] 81 mg tablet,delayed release (DR/EC) 81 mg PO BID 45 Days Qty: 90 0RF Rx Instructions: Take to prevent blood clots. cefadroxil 500 mg capsule 500 mg PO BID 7 Days Qty: 14 0RF Rx Instructions: Take 1 cap twice a day to prevent infection escitalopram oxalate 20 mg tablet 20 mg PO DAILY Qty: 90 2RF pantoprazole 40 mg tablet,delayed release (DR/EC) 40 mg PO DAILY Qty: 90 1RF phentermine 37.5 mg capsule 37.5 mg PO QAM Qty: 30 2RF Rx Instructions: must administer 30 minutes before or 1-2 hours after breakfast azithromycin 250 mg tablet See Rx Instructions PO .COMPLEX Qty: 6 0RF Rx Instructions: take 500 mg today (day 1), then 250 mg for 4 days (days 2-5) PO fexofenadine [Lovely Allergy] 180 mg Tablet 180 mg PO DAILY PRN (Reason: Allergy Symptoms) Krames/Other Patient Handouts: Knee Replace Home Recovery Admission Data Admit Date/Time: 06/27/24 08:53 Attending Provider: Anthony Sullivan Admit Provider: Anthony Sullivan Primary Care Provider: Aliza Gibbs Other Providers: [facility],Home Health Other Interventions: Discharge Summary Assessment (RN) Last Done: 06/28/24 11:11
[2024-06-28] MEDS: dexAMETHasone 10 MG in SYRINGE 0 ML IV SCH (08:37)
--- NOTE | 2024-07-03 19:22 | Anesthesiology Progress Note ---
Date of Service June 27, 2024 Anesthesia Post Procedure Pain Intensity Left Knee: Pain Intensity: 3 Transfer of Care Handoff Completed per policy Notes Mental Status: alert / awake / arousable Patient Amnestic to Procedure: Yes Nausea / Vomiting: adequately controlled Pain: adequately controlled Airway Patency, RR, SpO2: stable & adequate BP & HR: stable & adequate Hydration State: stable & adequate Anesthetic Complications: no major complications apparent and Pt Satisfied with anesthetic care
== END 2024-06-28 12:17 | disposition home health service (06) ==
LOC: 3E 05:26 → ASU 05:26